=== PATIENT | male | born 1995 | race Caucasian/White ===

== ENCOUNTER 2021-03-07 22:51 | Emergency (ER) | payer OTHER ==
[~2021-03-07] VITALS: Ht 170.2 cm; Wt 68.0 kg
[2021-03-07 22:51] VITALS: BP_SYST 133
--- NOTE | 2021-03-07 23:01 | NUR ---
PT TRIAGED AND BROUGHT IMMEDIATELY BACK TO BED #1, DR WOOD CALLED TO BEDSIDE
--- NOTE | 2021-03-07 23:01 | NUR ---
REPORT GIVEN TO AMEENA
--- NOTE | 2021-03-07 23:02 | NUR ---
Assumed total care of patient. Patient AAO x4 from home c/o consuming approximately 50 pills of Meclizine 12.5mg. Patient states he "didn't feel the point of living any longer". Patient history of depression and past SI attempts. Patient c/o lightheadedness. Patient denies nausea/vomiting, pain, dizziness, blurry vision. Patient denies hallucinations, visual and auditory. Patient placed on bus driver/monitor per protocol. VSS, breathing even and unlabored, no signs of acute distress noted. Will continue to monitor.
--- NOTE | 2021-03-07 23:02 | NUR ---
RUBIN Guy at bedside examining patient.
--- NOTE | 2021-03-07 23:02 | NUR ---
Patient took pills at 9pm.
--- NOTE | 2021-03-07 23:03 | NUR ---
Patient placed on suicide precautions. Patient placed in room within close proximity to nurses' station for closer observation and monitoring. All clothing removed, placed in hospital gown. Metal detector wand used to further screen patient of any potential hazardous belongings. All belongings inventoried, placed in bags and removed from room. Cabinets locked. BP and pulse oximeter cords, and threat monitoring analyst leads removed.
--- NOTE | 2021-03-07 23:05 | NUR ---
Called Poison Control at [phone] and spoke with ENRICO. Per recommendations: WATCH PT FOR DROWSYNESS OR AGITATION, WATCH FOR HYPERTHERMIA,GET BASELINE EKG, LABS,WATCH FOR URINARY RETENTION, RECHECK EKG Q2 HOURS WATCH FOR [id number] OR GREATER OR QTC >500. NO CHARCOAL, WATCH FOR RHABDO OR SEIZURES. GIVE ATIVAN IF SEIZURES. HYDRATE PT. GET BASIC LABS WITH A MAG LEVEL. Dr. WOOD notified. Will continue to monitor patient.
--- NOTE | 2021-03-07 23:07 | NUR ---
# 18 gauge angiocath placed to LEFT AC. Use of asceptic technique. Opsite placed over site. Blood return noted. Blood for lab drawn from site. Flushed with 10 cc of normal saline. No evidence of infiltration noted. Patient tolerated well.
[2021-03-07] MEDS ORDERED: ACTIVATED CHARCOAL 50 GM ORAL.SUSP PO ONE ×2 (23:11→23:15)
--- NOTE | 2021-03-07 23:12 | NUR ---
# 18 gauge angiocath placed to RIGHT FOREARM. Use of asceptic technique. Opsite placed over site. Blood return noted. Flushed with 10 cc of normal saline. No evidence of infiltration noted. Patient tolerated well.
--- NOTE | 2021-03-07 23:20 | NUR ---
Security at bedside to wand patient and collect all belongings.
--- NOTE | 2021-03-07 23:26 | NUR ---
Patient unable to obtain urine sample at this time, patient cannot go. Will reassess shortly after fluid administration.
[2021-03-07] MEDS ORDERED: NACL 0.9% 2,000 ML IV ONE (23:30)
[2021-03-07 23:55] LABS: ANION GAP 7 (5-15); CHLORIDE 100 mmol/L (98-107); CREATININE 0.96 mg/dL (0.55-1.30); GLUCOSE 311 mg/dL (70-99); POTASSIUM 3.5 mmol/L (3.5-5.1); SODIUM SERUM 137 mmol/L (136-145); UREA NITROGEN, BLOOD 10 mg/dL (8-21)
[2021-03-07 23:56] LABS: GFR AFRICAN AMERICAN 122 mL/min (>90)
[2021-03-08] LABS: ACETAMINOPHEN < 1 ug/mL (1-30); ALANINE AMINOTRANSFERASE 18 U/L (12-78); ALBUMIN 4.4 g/dL (3.4-4.8); ALCOHOL, BLOOD < 3 mg/dL (<10); ASPARTATE AMINOTRANSFERASE 9 U/L (10-37); TOTAL BILIRUBIN 0.3 mg/dL (0.0-1.0)
--- NOTE | 2021-03-08 00:21 | NUR ---
Patient resting quietly. IV fluids infusing at prescribed rate. No signs of infiltration. No acute distress noted. Vital signs within normal range.
--- NOTE | 2021-03-08 01:50 | NUR ---
Urine sample collected from bedside urinal. Sent to lab.
[2021-03-08 02:16] LABS: BILIRUBIN,URINE NEGATIVE (NEGATIVE); BLOOD, URINE NEGATIVE (NEGATIVE); CLARITY/URINE CLEAR (CLEAR); COLOR,URINE YELLOW (YELLOW); GLUCOSE,URINE 3+ (NEGATIVE); KETONES,URINE NEGATIVE (NEGATIVE); LEUKOCYTE ESTERASE ,URINE NEGATIVE (NEGATIVE); NITRITE, URINE NEGATIVE (NEGATIVE); PROTEIN URINE NEGATIVE (NEGATIVE); UROBILINOGEN,URINE 0.2 (0.2-1.0)
--- NOTE | 2021-03-08 02:21 | NUR ---
Patient resting quietly. No acute distress noted. Vital signs within normal range.
[2021-03-08 02:30] LABS: BARBITURATE, URINE NEGATIVE (NEG <=200); BENZODIAZEPINE, URINE NEGATIVE (NEG <=150); CANNABINOID, URINE NEGATIVE (NEG <=50); COCAINE, URINE NEGATIVE (NEG <=150); METHAMPHETAMINES SCREEN,URINE NEGATIVE (NEG <=500); OPIATE, URINE NEGATIVE (NEG <=100); PHENCYCLIDINE SCREEN,URINE NEGATIVE (NEG <=25); UR TRICYCLIC ANTIDEPRESSANTS NEGATIVE (NEG <=300); URINE AMPHETAMINE NEGATIVE (NEG <=500); URINE METHADONE NEGATIVE (NEG <=200); URINE OXYCODONE SCREEN NEGATIVE (NEG <=100); URINE PROPOXYPHENE SCREEN NEGATIVE (NEG <=300)
[2021-03-08 02:39] LABS: BACTERIA,URINE FEW /HPF (None Seen); RBC,URINE 0-3 /HPF (0-3); WBC,URINE 0-3 /HPF (0-3)
[2021-03-08 02:54] LABS: BASOPHILS % (AUTO) 0.5 % (0.0-2.0); EOSINOPHILS # (AUTO) 0.1 K/uL (0.0-0.4); EOSINOPHILS % (AUTO) 1.7 % (0.0-4.0); HEMATOCRIT 37.3 % (36-54); HEMOGLOBIN 12.6 g/dL (14.0-18.0); LYMPHOCYTES # (AUTO) 2.6 K/uL (1.0-5.5); LYMPHOCYTES % (AUTO) 35.4 % (20.5-51.5); MEAN CORPUSCULAR HEMOGLOBIN 31 pg (27-31); MEAN CORPUSCULAR HGB CONC 34 % (32-36); MEAN CORPUSCULAR VOLUME 92 fL (79.0-98.0); MONOCYTES # (AUTO) 0.4 K/uL (0.0-1.0); NEUTROPHILS # (AUTO) 4.1 K/uL (1.8-7.7); NEUTROPHILS % (AUTO) 56.4 % (40.0-70.0); PLATELET COUNT (AUTO) 218 K/uL (130-430); RED BLOOD CELL COUNT(AUTO) 4.05 MIL/uL (4.2-6.2); RED CELL DISTRIBUTION WIDTH 12.5 % (9.0-15.0); WHITE BLOOD COUNT (AUTO) 7.3 K/uL (4.8-10.8)
--- NOTE | 2021-03-08 03:21 | NUR ---
Patient resting quietly. No acute distress noted. Vital signs within normal range.
--- NOTE | 2021-03-08 04:21 | NUR ---
Dr. Guy speaking with [facility] for possible transfer
--- NOTE | 2021-03-08 04:42 | NUR ---
Received phone call from Marisa from the [facility] team regarding information about patient. She will be contacting the PET team at [facility] to set up plan of care. Will be faxing over lab results to [facility] as requested.
--- NOTE | 2021-03-08 05:56 | NUR ---
Patient to be transferred to [facility]. Is being transferred due to higher level of care. Receiving facility has accepting physician and available space. ER physician has signed transfer form. Patient or responsible republican has agreed to transfer and signed form. Patient belongings inventoried and will be sent with patient. Copy of nursing notes, lab reports, EKG, Physicians Orders and X-rays to be sent with patient. Receiving physician is Dr. Patel. ETA is [phone].
--- NOTE | 2021-03-08 06:14 | NUR ---
Report given to JOHN Pinto for continuation of care at [facility].
--- NOTE | 2021-03-08 06:45 | NUR ---
Received phone call from patients and gave update with patients consent. informed of plan of care.
--- NOTE | 2021-03-08 07:15 | NUR ---
Report given to [facility] BLS crew prior to transport to [facility]. Patient VSS, breathing even and unlabored, no signs of acute distress noted. IV sites patent, no signs of infiltration.
[2021-03-08 07:17] VITALS: BP_SYST 104
--- NOTE | 2021-03-08 07:18 | NUR ---
Security paged to bring patient valuables and belongings.
== END 2021-03-08 07:17 | disposition home or self-care (01) ==
LOC: SED 22:51
DX: T45.0X2A Poisoning by antiallergic and antiemetic drugs, intentional self-harm, initial encounter (principal); F32.9 Major depressive disorder, single episode, unspecified; I49.9 Cardiac arrhythmia, unspecified; Z20.822 Contact with and (suspected) exposure to COVID-19; Y92.89 Other specified places as the place of occurrence of the external cause
CPT/HCPCS: 36415; 80053; 80307; 81000; 82962; 85025; 87426; 93005; 99285; G0480; G0481; G0482